=== PATIENT | male | born 1970 | race Hispanic/Latino ===

== ENCOUNTER 2020-10-03 10:49 | Outpatient (CLI) | payer OTHER | END 2020-10-03 10:50 | disposition home or self-care (01) | LOC: CSHULT 10:49 | PROVIDERS: ATTEND Family Medicine | DX: R10.11 Right upper quadrant pain (principal); K82.4 Cholesterolosis of gallbladder; K76.0 Fatty (change of) liver, not elsewhere classified | CPT/HCPCS: 76705 ==

== ENCOUNTER 2020-10-09 12:38 | Outpatient (CLI) | payer OTHER | END 2020-10-09 12:39 | disposition home or self-care (01) | LOC: CSHNM 12:38 | PROVIDERS: ATTEND Family Medicine | DX: R10.11 Right upper quadrant pain (principal) | CPT/HCPCS: 78227; A9537 ==

== ENCOUNTER 2021-05-14 09:33 | Outpatient (CLI) | payer OTHER | END 2021-05-14 09:34 | disposition home or self-care (01) | LOC: CSHULT 09:33 | PROVIDERS: ATTEND Family Medicine | DX: R10.11 Right upper quadrant pain (principal); K76.0 Fatty (change of) liver, not elsewhere classified; K76.9 Liver disease, unspecified | CPT/HCPCS: 76705 ==

== ENCOUNTER 2024-05-03 12:38 | Outpatient (CLI) | payer OTHER | END 2024-05-03 12:39 | disposition home or self-care (01) | LOC: CSHULT 12:38 | PROVIDERS: ATTEND Family Medicine | DX: N50.811 Right testicular pain (principal) | CPT/HCPCS: 76870; 93976 ==